=== PATIENT | male | born 1980 | race Caucasian/White ===

== ENCOUNTER 2018-01-11 18:41 | Emergency (ER) | payer SELFPAY ==
[2018-01-11 18:47] VITALS: RESP 20
[2018-01-11] MEDS ORDERED: Aspirin 325 mg EC Tablets PO STA (19:10)
--- NOTE | 2018-01-11 19:14 | C.PDOC ---
History Of Present Illness 37 year old male presents to the ED complaining of left-sided chest pain, on and off since 2AM last night, associated with sharp, shooting pain down his left shoulder, arm, and hand. Also complaining of left arm numbness with occasional left facial numbness. No focal weakness, slurred speech, confusion, difficulty ambulating, or visual changes. Patient reports fever with Tmax of 101 at home yesterday, with coughing and some difficulty breathing. Past medical history is significant for hypertension, diabetes and asthma. Patient reportedly had angina type chest pain 4 years ago and was prescribed Nitro at that time, however he denies history of heart attack to his knowledge. Patient took Nitro earlier as well as baby aspirin. PMD: provider TBD Time Seen by Provider: 01/11/18 19:07 Chief Complaint (Nursing): Chest Pain History Per: Patient History/Exam Limitations: no limitations Onset/Duration Of Symptoms: Hrs (since 2AM) Quality: Sharp Past Medical History Reviewed: Historical Data, Nursing Documentation, Vital Signs Vital Signs: Last Vital Signs Temp 98.5 F 01/11/18 18:46 Pulse 107 H 01/11/18 18:46 Resp 20 01/11/18 18:46 BP 163/89 H 01/11/18 18:46 Pulse Ox 98 01/11/18 19:45 - Medical History PMH: Asthma, Diabetes (on metformin), HTN Family History: States: No Known Family Hx - Social History Hx Tobacco Use: No Hx Alcohol Use: No Hx Substance Use: No Review Of Systems Except As Marked, All Systems Reviewed And Found Negative. Constitutional: Positive for: Fever Eyes: Negative for: Vision Change Cardiovascular: Positive for: Chest Pain Respiratory: Positive for: Cough, Shortness of Breath Musculoskeletal: Positive for: Arm Pain (left) Neurological: Positive for: Numbness (of left arm and at times face). Negative for: Weakness, Incoordination, Change in Speech, Confusion, Headache, Dizziness Physical Exam - Physical Exam Appears: Non-toxic, No Acute Distress Skin: Normal Color, Warm, Dry Head: Atraumatic, Normacephalic Eye(s): bilateral: Normal Inspection, PERRL, EOMI Nose: Normal Oral Mucosa: Moist Neck: Normal ROM, Supple Chest: Symmetrical, No Tenderness Cardiovascular: Rhythm Regular (with regular rate, no ectopic beats noted), No Murmur, Other (S1,S2 within normal limits) Respiratory: Normal Breath Sounds, No Accessory Muscle Use, No Rales, No Rhonchi , No Wheezing Gastrointestinal/Abdominal: Bowel Sounds (active), Soft, No Tenderness, No Distention Extremity: Bilateral: Atraumatic, No Pedal Edema, Normal ROM Neurological/Psych: Oriented x3, Normal Speech, Normal Cranial Nerves (CN 2-12 intact), Normal Motor (5/5 strength throughout), Normal Sensation, No Expressive Aphasia, No Dysarthria, No Other (pronator drift) Gait: Unable To Assess Other Neurological Findings: No Facial Palsy ED Course And Treatment - Laboratory Results Result Diagrams: 01/11/18 19:28 01/11/18 19:28 ECG: Interpreted By Me, Viewed By Me ECG Rhythm: Sinus Tachycardia (at 100 bpm, no acute ST/T changes, no ectopy) O2 Sat by Pulse Oximetry: 98 (RA) Pulse Ox Interpretation: Normal Medical Decision Making Medical Decision Making: Impression: Atypical chest pain Time: 19:10 Initial Plan: --EKG --Urine drug screen --Troponin I --CMP --CBC w/ differential --D dimer --PTT --Prothrombin time --Chest x-ray --Urinalysis --Aspirin 325 mg PO --CT Head W/O contrast --Reevaluation Labs reviewed: D dimer 494, Troponin negative, U tox is negative. Disposition - Disposition Forms: [employer] (American) - Scribe Statement The provider has reviewed the documentation as recorded by the Scribe (Nidia Kinney) Provider Attestation: All medical record entries made by the Scribe were at my direction and personally dictated by me. I have reviewed the chart and agree that the record accurately reflects my personal performance of the history, physical exam, medical decision making, and the department course for this patient. I have also personally directed, reviewed, and agree with the discharge instructions and disposition.
[2018-01-11] MEDS ORDERED: Aspirin 325 mg EC Tablets PO ONE (19:28)
[2018-01-11 19:32] LABS: BASO % 0.6 % (0.0-2.0); EOS # 0.1 K/uL (0.0-0.7); EOS % 0.8 % (0.0-4.0); HEMOGLOBIN 15.7 g/dL (12.0-18.0); LYMPH # 2.3 K/uL (1.0-4.3); MEAN CELL VOLUME 88.3 fL (80.0-94.0); MEAN CORPUSCULAR HEMOGLOBIN 30.9 pg (27.0-31.0); MEAN PLATELET VOLUME 6.8 fL (7.2-11.7); MONO # 0.3 K/uL (0.0-0.8); MONO % 3.9 % (0.0-10.0); NEUT # 4.1 K/uL (1.8-7.0); NEUT % 60.7 % (50.0-75.0); NRBC % 0.1 % (0.0-2.0); RBC 5.09 Mil/uL (4.40-5.90); RED CELL DISTRIBUTION WIDTH 13.6 % (11.5-14.5); WHITE BLOOD COUNT 6.7 K/uL (4.8-10.8)
[2018-01-11 19:43] LABS: ALB/GLOB RATIO 1.3 (1.0-2.1); ALBUMIN 4.2 g/dL (3.5-5.0); ALT/SGPT 36 U/L (21-72); AST/SGOT 30 U/L (17-59); BLOOD UREA NITROGEN 13 mg/dL (9-20); CALCIUM 8.4 mg/dl (8.6-10.4); GFR AFRICAN-AMERICAN > 60; GFR NON-AFRICAN AMERICAN > 60
[2018-01-11 19:56] LABS: SQUAMOUS EPITHIAL 1 /hpf (0-5); URINE BILIRUBIN NEGATIVE (NEGATIVE); URINE BLOOD NEGATIVE (NEGATIVE); URINE CLARITY Clear (Clear); URINE COLOR Yellow (YELLOW); URINE GLUCOSE (UA) NORMAL (Normal); URINE LEUKOCYTE ESTERASE NEG Leu/uL (Negative); URINE PROTEIN NEGATIVE (NEGATIVE); URINE UROBILINOGEN NORMAL mg/dL (0.2-1.0)
[2018-01-11 20:00] LABS: PROTHROMBIN TIME 11.2 SECONDS (9.7-12.2)
[2018-01-11 20:09] LABS: BARBITURATES, UR NEGATIVE (NEGATIVE); BENZODIAZEPINES, UR NEGATIVE (NEGATIVE); OPIATES, UR NEGATIVE (NEGATIVE); PHENCYCLIDINE, UR NEGATIVE (NEGATIVE)
--- NOTE | 2018-01-11 20:59 | CT ---
EXAM: CT Head Without Intravenous Contrast EXAM DATE/TIME: 01/11/2018 7:23 PM CLINICAL HISTORY: 37 years old, male; Condition or disease; Headache; Cluster; Additional info: Facial numbness TECHNIQUE: Axial computed tomography images of the head/brain without intravenous contrast. All CT scans at this facility use one or more dose reduction techniques, viz.: automated exposure control; ma/kV adjustment per patient size (including targeted exams where dose is matched to indication; i.e. head); or iterative reconstruction technique. COMPARISON: There are no prior studies for comparison. FINDINGS: Brain: Ventricles are normal in size and configuration. There is no midline shift. There is mild prominence of sulci and gyri. There are no intra-axial or extra-axial mass lesions or areas of hemorrhage. There are occasional punctate parenchymal calcifications. There are no abnormal fluid collections. Guerrero-white differentiation is maintained. Ventricles: See above. Bones: Cranial vault is intact. Soft tissues: unremarkable Sinuses: There is no acute sinusitis. Ears and mastoids: There no acute middle ear or mastoid disease. Mastoids are incompletely pneumatized. Orbits: Orbital contents are unremarkable. IMPRESSION: No acute intracranial abnormality; occasional punctate parenchymal calcifications suggest prior inflammatory/infectious disease
--- NOTE | 2018-01-11 21:03 | C.PDOC ---
History Of Present Illness 37 y/o male presents to the ED complaining of chest pain for 3 days. Pain is constant, pleuritic, and worsens w/ movement of his left arm. Patient also complaining of pain to left side of neck that radiates to left arm and left upper chest. No known risk factors. No recent trauma. Also reports severe dizziness. PMD: none Time Seen by Provider: 01/11/18 19:07 Chief Complaint (Nursing): Chest Pain History Per: Patient History/Exam Limitations: no limitations Onset/Duration Of Symptoms: Days (x3) Current Symptoms Are (Timing): Still Present Associated Symptoms: Other (Dizziness) Past Medical History Reviewed: Historical Data, Nursing Documentation, Vital Signs Vital Signs: Last Vital Signs Temp 97.1 F L 01/11/18 21:10 Pulse 81 01/11/18 21:10 Resp 20 01/11/18 21:10 BP 149/70 01/11/18 21:10 Pulse Ox 99 01/11/18 21:10 - Medical History PMH: Denies: Diabetes, HTN Family History: States: No Known Family Hx - Social History Hx Tobacco Use: No Hx Alcohol Use: No Hx Substance Use: No Review Of Systems Except As Marked, All Systems Reviewed And Found Negative. Constitutional: Negative for: Chills, Sweats Cardiovascular: Positive for: Chest Pain Respiratory: Negative for: Shortness of Breath Gastrointestinal: Negative for: Nausea, Vomiting Musculoskeletal: Positive for: Arm Pain (left) Neurological: Positive for: Dizziness Physical Exam - Physical Exam Appears: Non-toxic, No Acute Distress Skin: Normal Color, Warm, Dry Head: Atraumatic, Normacephalic Eye(s): bilateral: Normal Inspection, PERRL, EOMI Nose: Normal Oral Mucosa: Moist Neck: Normal ROM, Supple Chest: Tenderness (Marked tenderness to left neck and anterior chest wall, with reproducible pain) Cardiovascular: Rhythm Regular (but tachy), No Murmur, Other (S1, S2 are wnl) Respiratory: No Rales, No Rhonchi, No Wheezing, Other (Lungs clear to auscultation) Gastrointestinal/Abdominal: Soft, No Tenderness, No Distention, No Guarding Extremity: Normal ROM, No Tenderness, No Pedal Edema, No Calf Tenderness, Other (Moving all extremities) Pulses: Left Dorsalis Pedis: Normal, Right Dorsalis Pedis: Normal Neurological/Psych: Oriented x3, Normal Speech, Normal Cranial Nerves, Normal Motor, Normal Sensation, No Other (focal deficits) ED Course And Treatment - Laboratory Results Result Diagrams: 01/11/18 19:28 01/11/18 19:28 ECG: Interpreted By Me, Viewed By Me ECG Rhythm: Sinus Tachycardia (at 100 bpm, no acute ST/T wave changes, no ectopy ) O2 Sat by Pulse Oximetry: 98 (RA) Pulse Ox Interpretation: Normal Medical Decision Making Medical Decision Making: Impression: Dizziness, Pleuritic chest pain, rule out ACS Time: 19:10 Initial Plan: --EKG --Urine drug screen --Troponin I --CMP --CBC w/ differential --D dimer --PTT --Prothrombin time --Chest x-ray --Urinalysis --Aspirin 325 mg PO --CT Head W/O contrast --Reevaluation Disposition - Disposition Referrals: [facility] [Outside] Disposition: HOME/ ROUTINE Disposition Time: 04:36 Condition: FAIR Prescriptions: Naproxen [Naprosyn] 500 mg PO BID #20 tablet Instructions: Costochondritis Forms: [employer] (Monegasque) Print Language: TOGOLESE - Clinical Impression Clinical Impression: Chest wall pain - Scribe Statement The provider has reviewed the documentation as recorded by the Scribe (Nidia Kinney) Provider Attestation: All medical record entries made by the Scribe were at my direction and personally dictated by me. I have reviewed the chart and agree that the record accurately reflects my personal performance of the history, physical exam, medical decision making, and the department course for this patient. I have also personally directed, reviewed, and agree with the discharge instructions and disposition.
[2018-01-11 21:11] VITALS: BP 149/70; PULSE 81; TEMP 97.1
[2018-01-12 04:37] VITALS: O2SAT 98
--- NOTE | 2018-01-12 08:58 | RAD ---
PROCEDURE: CHEST RADIOGRAPH, 1 VIEW HISTORY: chest pain COMPARISON: None available. FINDINGS: LUNGS: Clear. PLEURA: No pneumothorax or pleural fluid seen. CARDIOVASCULAR: Normal. OSSEOUS STRUCTURES: No significant abnormalities. VISUALIZED UPPER ABDOMEN: Normal. OTHER FINDINGS: None. IMPRESSION: No active disease.
--- NOTE | 2018-01-12 19:08 | CARD ---
APPROVED REPORT EKG Measurement Heart [id number] <Conclusion> Normal sinus rhythm Normal ECG
== END 2018-01-11 21:16 | disposition home or self-care (01) ==
LOC: C.ER 18:41
DX: R07.89 Other chest pain (principal); R42 Dizziness and giddiness
CPT/HCPCS: 70450; 71045; 80053; 81001; 84484; 85025; 85378; 85610; 85730; 93005; 99285; G0480